=== PATIENT | male | born 1940 | race Caucasian/White ===

== ENCOUNTER 2021-08-18 19:39 | Emergency (ER) | payer MEDICARE, BC ==
[~2021-08-18] VITALS: Ht 177.8 cm; Wt 86.4 kg
[2021-08-18 21:52] LABS: INR 2.1 (0.8-3.0); PROTHROMBIN TIME 23.6 SECONDS (9.7-12.8)
[2021-08-18 22:21] VITALS: BP 147/78; PULSE 69; TEMP 98.1
== END 2021-08-18 22:35 | disposition home or self-care (01) ==
LOC: COL.ER 19:39
PROVIDERS: Nurse Practitioner
DX: S09.90XA Unspecified injury of head, initial encounter (principal); S16.1XXA Strain of muscle, fascia and tendon at neck level, initial encounter; I25.10 Atherosclerotic heart disease of native coronary artery without angina pectoris; I10 Essential (primary) hypertension; W19.XXXA Unspecified fall, initial encounter; W22.8XXA Striking against or struck by other objects, initial encounter

== ENCOUNTER → 2021-11-09 | Outpatient (CLI) | payer MEDICARE, BC | LOC: ZCOL.LAB 10:42 → ZLAB.WCH 10:42 → EDSTATUS 11:47 | DX: I87.312 Chronic venous hypertension (idiopathic) with ulcer of left lower extremity (principal) ==

== ENCOUNTER → 2021-12-17 | Outpatient (CLI) | payer MEDICARE, BC | LOC: COL.VAS 12:00 | DX: I82.533 Chronic embolism and thrombosis of popliteal vein, bilateral (principal) ==